=== PATIENT | male | born 1950 | race Caucasian/White ===

== ENCOUNTER 2019-08-28 10:30 | Day surgery (SDC) | payer OTHER ==
[~2019-08-28] VITALS: Ht 180 cm; Wt 71.8 kg
[~2019-08-28 10:30] MED LIST: ALPR.5 PO; ASPI81CH PO; BENADRYL25 MG PO; Flovent Diskus50 MCG IH; Hair, Skin & N1 EACH PO; LAMICTAL PO; MELA3; NIAC500 PO; OLAN5 PO; OMEG1CAP30; OXYCODONE10 MG/0.5 PO; SILDENAFIL20 MG PO
--- NOTE | 2019-08-28 11:20 | NUR ---
Ambulatory in Day Surgery History, Chart, Medications and Allergies reviewed before start of procedure.Patient confirms NPO status and agrees with scheduled surgery. Patient reports completing Chlorhexadine shower X2 prior to admission to hospital.Surgical site prepped with 2% Chlorhexidine cloth wipe. Lungs clear T/O to Auscultation. Patient States Post-Procedure ride home has been arranged. PT UNABLE TO SPEAK BUT ABLE TO HEAR. AT BEDSIDE. DENTURES AND GLASSES REMOVED AND LEFT WITH .
--- NOTE | 2019-08-28 11:40 | NUR ---
08/28/19 1140 Pedrito Hollins See Anesthesia record. 3-LEAD EKG REVIEWED WITH PHYSICIAN PRIOR TO START OF PROCEDURE.History, Chart, Medications and Allergies reviewed before start of procedure.MONITOR INTACT WITH CONTINUOUS PULSE OXIMETRY AND INTERMITTENT BP.O2 VIA N/C INTACT THROUGHOUT SEDATION/PROCEDURE.
--- NOTE | 2019-08-28 13:02 | NUR ---
ORDER PUT IN FOR PAIN RX REPORT OFF TO AZEEM NORMAN.
--- NOTE | 2019-08-28 13:19 | NUR ---
WASTED 15MG (0.75ML) OF ROXICODONE, TRACEY LIU RN AND ROXANN CUNNINGHAM RN WERE WITNESSES.
--- NOTE | 2019-08-28 14:08 | NUR ---
Discharge instructions reviewed with patient. Patient verbalizes understanding. Copy given to patient to take home. PEG DRG C/D/I. Discharged via wheelchair to private car for ride home.
== END 2019-08-28 23:39 | disposition home or self-care (01) ==
LOC: ORSCMMR 10:30 → ORD 11:30 → ORSCMMR 11:30
PROVIDERS: Surgery
PROC: 0DH63UZ Insertion of Feeding Device into Stomach, Percutaneous Approach (ICD-10-PCS; principal; 2019-08-28 11:30)
DX: G12.21 Amyotrophic lateral sclerosis (principal); R13.19 Other dysphagia; F17.210 Nicotine dependence, cigarettes, uncomplicated; K21.9 Gastro-esophageal reflux disease without esophagitis; Z79.899 Other long term (current) drug therapy
CPT/HCPCS: C1769; J0690; J2704; J3370; J7050; J7120